=== PATIENT | female | born 1955 | race Caucasian/White ===

== ENCOUNTER 2021-06-11 13:46 | Emergency (ER) | payer MEDICARE, OTHER, SELFPAY ==
--- NOTE | ~2021-06-11 | XR_ITS ---
EXAMINATION: XR CHEST CLINICAL INFORMATION: SOB. COMPARISON: None TECHNIQUE: 2 views of the chest were obtained. FINDINGS: No significant abnormality is noted involving the heart, lungs, mediastinum, bony thorax or soft tissues. XR/XR chest 2V IMPRESSION: Unremarkable chest examination.
[2021-06-11 13:51] VITALS: BP 136/64; PULSE 100; RESP 18; TEMP 36.7; O2SAT 96; BMI 28.3
[2021-06-11 14:47] VITALS: BP 146/65; PULSE 82; RESP 18; TEMP 36.4; O2SAT 95
--- NOTE | 2021-06-11 14:47 | ECG_ITS ---
Test Reason : SHORTNESS OF BREATH Blood Pressure : / mmHG Vent. Rate : 081 BPM Atrial Rate : 081 BPM P-R Int : 184 ms QRS Dur : 082 ms QT Int : 384 ms P-R-T Axes : 048 041 033 degrees QTc Int : 446 ms Normal sinus rhythm RSR' or QR pattern in V1 suggests right ventricular conduction delay Otherwise normal ECG No previous ECGs available Referred By: Stu Madrid Electronically Signed By:CLARK EUGENE MD
--- NOTE | 2021-06-11 14:48 | ED.GENADULT ---
HPI - General Adult General Chief complaint: General Medical Stated complaint: cleaning product reaction Time Seen by Provider: 06/11/21 14:45 Source: patient Mode of arrival: ambulatory Limitations: no limitations History of Present Illness HPI narrative: This is a 66 years old female presented to the emergency department complaining of shortness of breath, patient stated she was using chemical bleach to clean the house prior to the episode. Denies any fever, chills vomiting. Onset (ago): hour(s) (2) Location: chest Radiation: non-radiation Severity: mild Quality: burning Pain Consistency: constant Related Data Allergies Allergy/AdvReac Type Severity Reaction Status Date / Time No Known Allergies Allergy Verified 06/11/21 13:51 Review of Systems Review of Systems: Yes all other systems are reviewed and are negative Constitutional: Constitutional: Reports no additional constitutional complaints ENT: Reports system reviewed and no additional complaints, except as documented Cardiovascular: Cardiovascular: Reports no additional cardiovascular complaints and Reports dyspnea Respiratory: Respiratory: Denies pain with cough and Reports dyspnea PMFSH Past Medical History Medical History (Updated 06/11/21 @ 16:09 by Stu Madrid MD) Restless leg syndrome Surgical History (Updated 06/11/21 @ 13:53 by Lisa Foley RN) S/P LEEP S/P MCL repair Social History Social History Alcohol intake: current Alcohol intake frequency: holidays/special occasions only Patient Tobacco Use Status: Never used Tobacco Use of substances other than those prescribed or required for medical reasons: No Advance Directives: Yes Advance Directives Information Provided: Yes Advance Directives on File: No Physical Exam Vital Signs: Vital Signs: Last Vital Signs Temp 97.5 F 06/11/21 14:47 Pulse 82 06/11/21 14:47 Resp 18 06/11/21 14:47 BP 146/65 H 06/11/21 14:47 Pulse Ox 95 06/11/21 14:47 Body Mass Index 28.3 Const: General: cooperative and anxious Orientation/consciousness: patient oriented x3 HENMT: Head: Yes normal to inspection Face and sinus: Yes normal facial exam Mouth: Normal oral and palatal mucosa present Neck: Neck: Yes normal visual inspection and Yes full ROM Chest: Chest palpation & inspection: normal inspection of the chest Resp: Effort & Inspection: normal respiratory effort Auscultation: clear to auscultation bilaterally Cardio: Jugular venous distension: no JVD Rate: regular rate Rhythm: regular rhythm GI: Inspection: Yes normal to inspection Palpation (GI): Soft to palpation, nontender and no guarding Auscultation: normal bowel sounds Skin: General skin exam: no rashes or lesions noted, elasticity normal and turgor normal Lesions: no lesions Neuro: General: patient oriented x3 Course Course Course Narrative: remain stable clinically,oxygenating well Medical Decision Making Lab Data Lab results reviewed: Yes I reviewed the patient's lab results. Imaging Data Chest x-ray: Radiologist's impression: Accession Number(s): [id number] cc: Stu Madrid MD~ EXAMINATION: XR CHEST CLINICAL INFORMATION: SOB. COMPARISON: None TECHNIQUE: 2 views of the chest were obtained. FINDINGS: No significant abnormality is noted involving the heart, lungs, mediastinum, bony thorax or soft tissues. XR/XR chest 2V IMPRESSION: Unremarkable chest examination. Dictated By: Jerod Harley MD Signed By: <Electronically signed by Jerod Harley MD in [place]> 06/11/21 1521 ECG Data Pacemaker model: Normal sinus rate [address]-T changes Discharge Plan Discharge Clinical Impression: Exposure to chemical irritant Patient Disposition: Home, Self-Care Additional Instructions: Return if worse,your CXR ws normal no damage to the lung. Return if worse Referrals: Physician,Unknown J [Primary Care Provider] - 2 days
--- NOTE | 2021-06-11 15:06 | PC.NURSE ---
patient a&ox3, vss, pt speaking in full sentences, cxr performed, pt awaiting ekg, will continue to monitor..
== END 2021-06-11 16:23 | disposition home or self-care (01) ==
PROVIDERS: Emergency Provider Emergency Medicine
DX: R06.02 Shortness of breath (principal); Z57.5 Occupational exposure to toxic agents in other industries
CPT/HCPCS: 71046; 93005; 99283; 99284

== ENCOUNTER 2023-03-06 07:18 | Emergency (ER) | payer MEDICARE, OTHER, SELFPAY ==
--- NOTE | ~2023-03-06 | XR_ITS ---
EXAMINATION: XR HIP, RIGHT CLINICAL INFORMATION: Pain COMPARISON: None available. TECHNIQUE: Two views of the right hip. Frontal view of the pelvis. FINDINGS: No fracture or dislocation. The hips are well aligned. There is osseous overgrowth at the superior aspect of the right acetabulum. This could be from prior avulsive injury. The pelvic rim is intact. The sacroiliac joints and pubic symphysis are well aligned. Normal bowel gas pattern. XR/XR hip RT w PEL1V IMPRESSION: Osseous overgrowth at the superior aspect of the right acetabulum. This could be from prior avulsive injury.
[2023-03-06 08:10] VITALS: BP 153/59; PULSE 69; RESP 18; TEMP 36.8; O2SAT 99; BMI 28.3
[2023-03-06] MEDS: predniSONE 20 MG TABLET 60 MG PO (09:50)
[2023-03-06] MEDS: Ketorolac Tromethamine 30 MG/ML VIAL IM (09:50)
--- NOTE | 2023-03-06 10:06 | ED.GENADULT ---
HPI - General Adult General Chief complaint: Extremity Problem Stated complaint: severe pain in right hip Time Seen by Provider: 03/06/23 09:25 Source: patient Mode of arrival: ambulatory Limitations: no limitations History of Present Illness HPI narrative: 67-year-old female past med history of anxiety, and cholesterol presents to ED for right hip pain that is worse on movement. Patient states right hip pain for couple of days without any injury. Patient states no swelling of right lower extremity, calf pain, fever, chills, recent long travel, recent surgery, any bluish black discoloration. Patient denies any chest pain, shortness of breath, or pleurisy. patient denies any dysuria/hematuria Related Data Previous Rx's Medication Instructions Recorded ketorolac 10 mg tablet 10 mg PO QID PRN pain 5 days #20 03/06/23 tabs prednisone 20 mg tablet 40 mg PO DAILY 5 days #10 tabs 03/06/23 Allergies Allergy/AdvReac Type Severity Reaction Status Date / Time No Known Allergies Allergy Verified 06/11/21 13:51 Review of Systems Review of Systems: Right hip pain Yes all other systems are reviewed and are negative [facility] Past Medical History Medical History (Updated 03/07/23 @ 00:02 by Christal Guido) Restless leg syndrome Surgical History (Updated 06/11/21 @ 13:53 by Lisa Foley RN) S/P LEEP S/P MCL repair Social History Social History Alcohol intake: current Alcohol intake frequency: holidays/special occasions only Patient Tobacco Use Status: Never used Tobacco Advance Directives: Yes Advance Directives Information Provided: Yes Advance Directives on File: No Physical Exam ED Vital Signs: Vital Signs - 24 hr 03/06/23 08:10 Temperature 98.3 F Pulse Rate 69 Respiratory Rate 18 Blood Pressure 153/59 H Pulse Oximetry 99 Oxygen Delivery Method Room Air BMI result Body Mass Index 28.3 Const General: cooperative, healthy appearing, comfortable, no acute distress, well developed, alert, awake and Physically active Orientation/consciousness: oriented to person, oriented to place, oriented to time and patient oriented x3 HENMT Head: Yes normal to inspection, Yes No palpable skull fracture present, Yes normocephalic, Yes atraumatic and No abrasion Eyes General: appearance normal, both eyes and all related structures Neck Neck: Yes normal visual inspection, Yes full ROM, Yes no lymphadenopathy, Yes no meningeal signs, Yes trachea midline, Yes supple, No anterior neck swelling and No tender Chest Chest palpation & inspection: normal inspection of the chest and normal palpation of entire chest wall Resp Effort & Inspection: normal respiratory effort and able to speak in complete sentences Auscultation: clear to auscultation bilaterally Cardio Jugular venous distension: no JVD Heart sounds: S1 normal heart sound present and S2 normal heart sound present GI Inspection: Yes normal to inspection and No abdominal wall ecchymosis Palpation (GI): Soft to palpation, not firm, nontender, no guarding and not rigid General: No CVA tenderness and Yes no CVA tenderness Back/Spine/Pelvis Back: no CVA tenderness, No CVA tenderness and No back tenderness Skin General skin exam: no rashes or lesions noted and elasticity normal Neuro General: oriented to person, oriented to place, oriented to time, patient oriented x3, gait normal, tone normal, moves all extremities, Normal light touch and pain sensation, no meningeal signs, no focal motor deficits, CN's II-XI intact bilaterally and normal sensation to monofilament Extrem General: Yes normal to inspection and Yes full ROM Upper/lower leg/hip images: 1. positive for tenderness on palpation and range of motion. Negative any swelling, ecchymosis, palpable cord, deformity, or crepitus. Femoral pulse intact. Rest of lower extremity normal and negative for swelling of legs, crepitus, redness, a bluish black discoloration. Negative for calf pain. Negative ecchymosis. All lower extremity motor/ neuro/vascular exam intact. Psych Appearance: grossly normal, well kempt and not disheveled Medications Administered Discontinued Medications Generic Name Dose Route Start Last Admin Trade Name Freq PRN Reason Stop Dose Admin Ketorolac Tromethamine 30 mg 03/06/23 09:41 03/06/23 09:50 Ketorolac Tromethamine 30 Mg/Ml Vial IM 03/06/23 09:42 30 mg ONCE ONE Administration Prednisone 60 mg 03/06/23 09:41 03/06/23 09:50 Prednisone 20 Mg Tablet PO 03/06/23 09:42 60 mg ONCE ONE Administration Medical Decision Making Medical Decision Making MDM Narrative: 67-year-old female presents to ED for right hip pain without any trauma. Patient denies any swelling, bluish black discoloration, crepitus, deformity, calf pain, chest pain, shortness of breath, dysuria, hematuria, flank pain, abdominal pain, bluish black discoloration, hotness, fever, chills, or Coldness. X-ray shows osseous bone growth on the right acetabulum, which is a bone spur can cause pain. history physical exam indicates Femoroacetabular Imingement. history physical exam does not indicate septic joint, cellulitis, DVT, arterial occlusion, fracture, compartment syndrome. Differential Diagnosis Differential Diagnoses: The differential diagnosis associated with the presentation includes (BORIS, septic joint, cellulitis, DVT, arterial occlusion, fracture, compartment syndrome,) Admission/Observation Consideration of admission/observation: Escalation of care including admission/observation considered Independent Interpretation I performed an independent interpretation of an: Plain X-Ray Radiology Impression Discussion of test interpretation with radiology: I have reviewed the radiologist's reading. Radiologist Impression: Patient: Margarette Rodriguez MR#: [id number] : 1955 Acct:[id number] Age/Sex: 67 / F ADM Date: 03/06/23 Loc: HO.ED Attending Dr: Ordering Physician: Generic ED Physician Date of Service: 03/06/23 Procedure(s): XR hip RT w PEL1V Accession Number(s): [id number] cc: Generic ED Physician~ EXAMINATION: XR HIP, RIGHT CLINICAL INFORMATION: Pain COMPARISON: None available. TECHNIQUE: Two views of the right hip. Frontal view of the pelvis. FINDINGS: No fracture or dislocation. The hips are well aligned. There is osseous overgrowth at the superior aspect of the right acetabulum. This could be from prior avulsive injury. The pelvic rim is intact. The sacroiliac joints and pubic symphysis are well aligned. Normal bowel gas pattern. XR/XR hip RT w PEL1V IMPRESSION: Osseous overgrowth at the superior aspect of the right acetabulum. This could be from prior avulsive injury. ? 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 Return to the ED immediately for any swelling of lower extremity, bluish black discoloration, redness, calf pain, chest pain, fever, chills, abdominal pain, flank pain, dysuria, hematuria, or any other concerning symptoms. Prescriptions: New prednisone 20 mg tablet 40 mg PO DAILY 5 Days Qty: 10 0RF ketorolac 10 mg tablet 10 mg PO QID PRN (Reason: pain) 5 Days Qty: 20 0RF Rx Instructions: Received 30mg IM in the ED Stand Alone Forms: Work/School Release Interventions: ED Discharge Assessment Last Done: 03/06/23 10:23 Discharge Date/Time: 03/06/23 10:23 Print Language: Spanish
== END 2023-03-06 10:23 | disposition home or self-care (01) ==
PROVIDERS: Emergency Provider Emergency Medicine
DX: M25.851 Other specified joint disorders, right hip (principal); R10.2 Pelvic and perineal pain
CPT/HCPCS: 73502; 96372; 99283; 99284; J1885